=== PATIENT | female | born 1990 | race Caucasian/White ===

== ENCOUNTER 2017-12-24 12:20 | Inpatient (IN) | payer BC ==
[2017-12-24] MEDS ORDERED: Ringers Lactate 1,000 ML IV PRN (12:25)
[2017-12-24] MEDS ORDERED: PROMETHAZINE 25 MG/ML VIAL IV PRN (12:25)
[2017-12-24] MEDS ORDERED: CARBOPROST TROME 250 MCG/ML IM PRN ×2 (12:25→13:04)
[2017-12-24] MEDS ORDERED: BUTORPHANOL 1 MG/ML INJ IV PRN (12:25)
[2017-12-24] MEDS ORDERED: METHYLERGONOVINE 0.2MG/ML AMP IM PRN ×2 (12:25→13:04)
[2017-12-24] MEDS ORDERED: OXYTOCIN/LR 20 UNIT/1,000 ML BAG IV ONE (12:46)
[2017-12-24] MEDS ORDERED: LIDOCAINE 2% INJ, 20 mL 20 ML ONE (12:52)
[2017-12-24] MEDS ORDERED: OXYTOCIN/LR 20 UNIT/1,000 ML BAG IV SCH ×2 (13:00→14:00)
[2017-12-24] MEDS ORDERED: Ringers Lactate 1,000 ML IV SCH (13:00)
[2017-12-24] MEDS ORDERED: Oxycodone HCl/Acetaminophen 1 TAB TAB PO PRN (13:04)
[2017-12-24] MEDS ORDERED: ONDANSETRON 4 MG (ODT) TAB PO PRN (13:04)
[2017-12-24] MEDS ORDERED: METHYLERGONOVINE 0.2 MG TAB PO PRN (13:04)
--- NOTE | 2017-12-24 13:08 | P.BOP ---
Preoperative diagnosis: 39+ week , active, rapidly advancing labor Postoperative diagnosis: same, non-sterile, controlled delivery Primary procedure: as above Secondary procedure: repair of second degree laceration Estimated blood loss: Less than 300ml Anesthesia: Local (for repair) Complications: Other (Non sterile delivery) Transferred to: Other (272) Condition: Good
[2017-12-24 13:51] LABS: RPR Titer ND
[2017-12-24 13:55] LABS: Absolute Lymphocytes (CBC) 0.8 K/uL (0.7-4.9); Absolute Monocytes 0.4 K/uL (0.1-1.3); Absolute Neutrophil 8.3 K/uL (1.8-8.0); Basophils % 0.2 % (0-1.3); Eosinophils % 0.4 % (0-4.4); Hematocrit 39.4 % (36.0-45.0); Lymphocytes % 8.3 % (15.3-44.8); MCH 30.3 pg (27.0-35.0); MCV 88.9 fL (80-100); MPV 8.2 fL (7.6-11.3); Monocytes % 4.6 % (3.3-12.3); RBC Red Blood Cell Count 4.43 M/uL (3.86-4.86)
[2017-12-24 13:56] LABS: Urine Appearance CLEAR; Urine Bilirubin NEGATIVE (NEG); Urine Blood 2+ (NEG); Urine Color YELLOW; Urine Glucose NEGATIVE (NEG); Urine Protein NEGATIVE (NEG); Urine Urobilinogen 0.2 mg/dL (0.2-1.0)
[2017-12-24 14:01] LABS: Urine Microscopic Reflex ORDER UMIC
[2017-12-24 14:14] VITALS: BMI 31.6
[2017-12-24 14:16] LABS: Urine Bacteria NONE SEEN /HPF (<20); Urine RBC <5 /HPF (NONE SEEN)
[2017-12-24 14:17] LABS: Urine Culture Reflex Order NOT NEEDED
[2017-12-24 14:41] LABS: Blood Morphology Comment NOT SEEN (NOT SEEN); Platelet Estimate ADEQ; Urine White Blood Cell Casts OK
[2017-12-24] MEDS: IBUPROFEN 200 MG TAB PO PRN (20:23)
[2017-12-25] MEDS: IBUPROFEN 200 MG TAB PO PRN (05:05)
[2017-12-25 14:50] VITALS: BP 101/55; TEMP 97.6
[2017-12-26 16:13] LABS: HBsAG Nonreactive (Nonreactive)
[2017-12-26 19:06] LABS: RPR (Rapid Plasma Reagin) NON-REACT (NON-REACT)
--- NOTE | 2017-12-27 08:40 | DN ---
Surgeon: Rhett Dowell MD Delivery Note: Ms. Pablo is a 27-year-old female, 4, para 3-0-0-3, admitt ed in active rapidly advancing labor at 39+ weeks gestation. She had a first stage of labor approxim ately 7 hours, second stage of labor 5 minutes. She delivered by spontaneous controlled nonsterile d elivery a 6-pound 11-ounce female infant, 9 and 9. The was delivered after delayed cord clamping. The cord was clamped, cut, and the placed on mother's upper abdomen. Cord blood w as obtained. The placenta was spontaneously expelled and appeared to be intact. Intrauterine exam r evealed no retained placental fragments. She suffered a small perineal laceration at the time of del alireza, which was repaired utilizing local infiltration anesthesia and 3-0 Vicryl suture in the usual fashion. The patient tolerated procedures well. Received no analgesics during her labor course. Es timated total blood loss was less than 300 cc. Because of questionable IV access at that time nicola ellison of the rapidity of her labor course, she was given 1 dose of Methergine IM, but her bleeding was we ll controlled. ELISE/KRISH Voice ID: [id number] Report ID: [id number]
--- NOTE | 2017-12-27 08:48 | PREOPHP ---
Date of Admission: 12/24/2017 History Of Present Illness: Ms. Pablo is a 27-year-old female, 4, para 3- 0-0-3, who has been followed by me during this with complications of threatened AB and fami ly history of trisomy. She denies recent cough, cold, fever, chills, UTI symptoms. Cramping began t michael and she presents to Labor and Delivery in active rapidly advancing labor. Past Medical History: Please see record. Family History: Please see record. Review of Systems: She reports no recent cough, cold, fever, or chills. No recent nausea or vomiting. No breast masses . No bladder or urine symptoms. No bowel issues. Physical Examination: General: female, in moderate discomfort. Neck: Supple without adenopathy or thyromegaly. Lungs: Clear. Cardiac: Regular rate and rhythm without murmurs. Breasts: Not examined. Abdomen: Estimated weight 7+ pounds. Pelvic: Cervix noted to be 6+ on admission, vertex presentation. Extremities: No cyanosis, clubbing, or edema. Impression: Term , active rapidly advancing labor. The patient will be admitted for delive ry. ELSIE/KRISH Voice ID: [id number]
--- NOTE | 2017-12-27 08:48 | DS ---
Date of Discharge: 12/25/2017 Final Hospital Discharge Diagnosis: 39+ weeks , spontaneous controlled nonsterile delivery of viable female infant. Complications: Nonsterile delivery. Procedures: 1.Spontaneous controlled vaginal delivery of viable female . 2.Local infiltration anesthesia. 3.Repair of second-degree perineal laceration. Hospital Course: The patient is a 27-year-old female, 4, para 3-0-0-3, adm itted and delivered with active rapidly advancing labor a 6-pound 11-ounce female , 9 and 9. She was dismissed on the first day, ambulatory, on a select diet with routine post va ginal delivery activity restrictions. To be seen back in my office in 6 weeks. Lab work included ad mission hemoglobin and hematocrit of 13.4 and 39.4, dismissal of 34.5. She had a negative urinalysis , nonreactive RPR. She has Rh positive blood type. She was dismissed to continue taking her prenata l iron and vitamins, use ibuprofen and Tylenol for any discomfort, and to be seen back in my office i n 6 weeks. ELSIE/KRISH Voice ID: [id number] Report ID: [id number]
== END 2017-12-25 15:00 | disposition home or self-care (01) | DRG 775 ==
LOC: 2ND-WC 12:20
PROVIDERS: ADMIT Specialist; ATTEND Specialist
PROC: 10E0XZZ Delivery of Products of Conception, External Approach (ICD-10-PCS; principal; 2017-12-24)
PROC: 0KQM0ZZ Repair Perineum Muscle, Open Approach (ICD-10-PCS; 2017-12-24)
DX: O70.1 Second degree perineal laceration during delivery (principal); Z37.0 Single live birth; Z3A.39 39 weeks gestation of pregnancy; Z88.1 Allergy status to other antibiotic agents
CPT/HCPCS: 36415; 81003; 81015; 85014; 85025; 86592; 86901; 87340; J2210; J2590